=== PATIENT | male | born 1985 | race Caucasian/White ===

== ENCOUNTER 2019-09-18 11:07 | Emergency (ER) | payer MEDICAID ==
[~2019-09-18] VITALS: Ht 188 cm; Wt 83.9 kg
[2019-09-18 11:17] VITALS: BP 154/78
== END 2019-09-18 13:01 | disposition left against medical advice (07) ==
LOC: ER 11:07
DX: S00.12XA Contusion of left eyelid and periocular area, initial encounter (principal); S00.83XA Contusion of other part of head, initial encounter; Z53.21 Procedure and treatment not carried out due to patient leaving prior to being seen by health care provider; Y04.2XXA Assault by strike against or bumped into by another person, initial encounter; Y93.39 Activity, other involving climbing, rappelling and jumping off; Y92.89 Other specified places as the place of occurrence of the external cause; Y99.8 Other external cause status